=== PATIENT | female | born 1940 | race Caucasian/White ===

== ENCOUNTER 2021-02-16 08:07 | Inpatient (IN) | payer OTHER ==
[~2021-02-16] VITALS: Ht 167.6 cm; Wt 108.0 kg
[2021-02-16 08:17] VITALS: BP 170/91
[2021-02-16] MEDS ORDERED: HYDROCHLOROTHIA25 M1 PO (08:25)
[2021-02-16] MEDS ORDERED: SYNTHROID112 MC1 PO (08:25)
[2021-02-16] MEDS ORDERED: VOLTAREN ARTHRI20 GM (08:37)
[2021-02-16 08:46] LABS: INFLUENZA A ANTIGEN Negative (Negative); INFLUENZA B ANTIGEN Negative (Negative)
[2021-02-16 09:02] LABS: ABSOLUTE LYMPHOCYTES 1.7 thou/uL (0.8-5.3); ABSOLUTE MONOCYTES 0.3 thou/uL (0.0-1.2); ABSOLUTE NEUTROPHILS 1.7 thou/uL (1.6-8.1); BASOPHILS 0.4 %; EOSINOPHILS 0.5 %; HEMATOCRIT 44.6 % (37.0-47.0); HEMOGLOBIN 15.4 gm/dL (12.0-15.0); LYMPHOCYTES 44.8 %; MCHC 34.6 g/dL (28.0-37.0); MCV 95.4 fL (80.0-100.0); MONOCYTES 8.4 %; MPV 8.1 fl. (7.2-11.1); NUCLEATED RBCS 0 /100WBC; PLATELET COUNT* 162 thou/uL (150-400); POLYS 45.9 %; RBC 4.67 mil/uL (4.20-5.00); RDW-CV 12.5 % (10.5-14.5); WBC 3.7 thou/uL (4.0-11.0)
[2021-02-16 09:06] LABS: CALCIUM 8.7 mg/dL (8.5-10.1); POTASSIUM 3.2 mmol/L (3.5-5.1)
[2021-02-16 09:17] LABS: ALBUMIN 3.4 g/dL (3.4-5.0); MAGNESIUM 1.8 mg/dL (1.8-2.4); TOTAL BILIRUBIN 0.7 mg/dL (<0.1-1.0); TOTAL PROTEIN 7.9 g/dL (6.4-8.2)
[2021-02-16 10:19] LABS: URINE BILIRUBIN NEGATIVE (Negative); URINE BLOOD NEGATIVE (Negative); URINE CLARITY CLEAR; URINE COLOR YELLOW; URINE GLUCOSE-RANDOM NEGATIVE (Negative); URINE KETONES NEGATIVE (Negative); URINE LEUKOCYTES-REFLEX NEGATIVE (Negative); URINE NITRITE-REFLEX NEGATIVE (Negative); URINE PROTEIN NEGATIVE (Negative); URINE SPECIFIC GRAVITY <= 1.005 (1.005-1.030); URINE UROBILINOGEN 0.2 E.U./dl (0.2-1.0)
[2021-02-16] MEDS ORDERED: IVERMECTIN3 MG PO (11:39)
[2021-02-16] MEDS ORDERED: AZITHROMYCIN250 MG PO (11:40)
[2021-02-16 17:00] VITALS: BP 165/94
[2021-02-16 19:00] LABS: CALCIUM 7.6 mg/dL (8.5-10.1); POTASSIUM 3.9 mmol/L (3.5-5.1)
[2021-02-16 19:03] LABS: MAGNESIUM 2.2 mg/dL (1.8-2.4); PHOSPHORUS* 2.2 mg/dL (2.5-4.9)
[2021-02-16 20:47] VITALS: BP 156/76
[2021-02-16 21:10] VITALS: BP 168/75
[2021-02-17 00:50] VITALS: BP 174/76
[2021-02-17 05:27] VITALS: BP 1151/61
[2021-02-17 06:21] LABS: CHOLESTEROL 116 mg/dL (<200); HDL CHOLESTEROL 43 mg/dL (>40); LDL CHOLESTEROL 63 mg/dL (<100); TC:HDL 2.7 Ratio (Not establshd); TRIGLYCERIDE 54 mg/dL (<150); VLDL 11 mg/dL (<40)
[2021-02-17 06:25] LABS: SERUM ASSESSMENT Clear
--- NOTE | 2021-02-17 09:28 | EKG ---
[place] [address] ELECTROCARDIOGRAM REPORT Name: AMIEBRI Bere Room: [address] IN [facility]#: [id number] Admission: 02/16/21 Attend Phys: Maris Oreilly Discharge: Date of : 36 Date of Service: 02/16/21805 Report #: [id number] THIS REPORT FOR: //name// [facility] ED Test Date: 2021-02-16 Test Time: 08:06:29 Pat Name: CHARAN HOLLOWAY Department: Patient ID: [id number]- Room: Gender: F Block Cuber: : 1940 Requested By: Emerson Gayle Order Number: [id number] MD: Francisco Chin Measurements Intervals [place] Rate: 154 P: 153 NJ: 92 QRS: 33 QRSD: 92 T: -54 QT: 296 QTc: 474 Interpretive Statements Atrial flutter Repolarization abnormality, prob rate related No previous ECG available for comparison Electronically Signed On 02-17-2021 9:27:44 GRAPHIC TECHNICIAN by Francisco Chin [email or web address] <ELECTRONICALLY SIGNED> By: Elizabeth Chin MD, [facility] 02/17/21 0927 5 08 Elizabeth Chin MD, [facility]IR[facility] /EPI
[2021-02-17 13:12] LABS: ABSOLUTE LYMPHOCYTES 2.3 thou/uL (0.8-5.3); ABSOLUTE MONOCYTES 0.4 thou/uL (0.0-1.2); ABSOLUTE NEUTROPHILS 6.2 thou/uL (1.6-8.1); BASOPHILS 0.4 %; HEMATOCRIT 42.8 % (37.0-47.0); HEMOGLOBIN 15.3 gm/dL (12.0-15.0); LYMPHOCYTES 26.2 %; MCH 33.6 pg (26.0-34.0); MCHC 35.9 g/dL (28.0-37.0); MCV 93.6 fL (80.0-100.0); MONOCYTES 4.4 %; MPV 7.8 fl. (7.2-11.1); NUCLEATED RBCS 0 /100WBC; PLATELET COUNT* 170 thou/uL (150-400); RBC 4.57 mil/uL (4.20-5.00); RDW-CV 12.8 % (10.5-14.5); WBC 8.9 thou/uL (4.0-11.0)
[2021-02-17 13:25] LABS: CALCIUM 8.7 mg/dL (8.5-10.1); POTASSIUM 3.8 mmol/L (3.5-5.1)
[2021-02-17 13:57] LABS: DIRECT BILIRUBIN 0.1 mg/dL (<0.1-0.3); MAGNESIUM 2.2 mg/dL (1.8-2.4); TOTAL BILIRUBIN 0.5 mg/dL (<0.1-1.0); TOTAL PROTEIN 6.7 g/dL (6.4-8.2)
[2021-02-17 17:00] VITALS: BP 124/84
[2021-02-17 19:45] VITALS: BP 198/91
[2021-02-17 23:59] VITALS: BP 138/68
[2021-02-18 04:46] VITALS: BP 116/58
[2021-02-18 08:00] VITALS: BP 149/81
--- NOTE | 2021-02-18 08:15 | CON ---
[address] [address] CONSULTATION Name: BRI HOLLOWAY Room: [address] IN M.R.#: [id number] Admission: 02/16/21 Attend Phys: Pallavi Alicea Discharge: Date of : 36 Report #: [id number] THIS REPORT FOR: cc: Chad Guzmán MD, Anthony MD Biggs, F. Douglas MD [facility] ~ DATE OF CONSULTATION: 02/17/2021 CARDIOLOGY FOLLOWUP NOTE HISTORY OF PRESENT ILLNESS: Today she feels better. She does not have any specific complaint other than just not feeling well. She has converted to normal sinus rhythm. She was in atrial flutter with 2:1 block. She denies significant shortness of breath today. PHYSICAL EXAMINATION: VITAL SIGNS: Her temperature is 36.6, pulse is 67 and regular, her respirations are 20 and regular, blood pressure is 151/61. NECK: There is no jugular venous distention or hepatojugular reflux. Thyroid is not enlarged. HEART: Revealed normal first and second heart sound. There is soft S4. There is no S3. There are no murmurs, rubs, thrills, heaves or gallops. PMI is not displaced. ABDOMEN: Soft, flat, nontender, no palpable masses, no organomegaly. EXTREMITIES: Reveal no cyanosis, clubbing or edema. IMPRESSION: 1. Atrial flutter with 2:1 block, now in normal sinus rhythm. 2. Essential hypertension. 3. COVID-19 infection. RECOMMENDATIONS: I get her off of the IV amiodarone and switch her to p.o. and check her EKGs. Overall she looks fairly well today. <ELECTRONICALLY SIGNED> By: Elizabeth Chin MD, FACC 02/18/21 0815 0814 [id number]. Francisco Chin MD, FACC /nt
--- NOTE | 2021-02-18 10:36 | EKG ---
[place] [address] ELECTROCARDIOGRAM REPORT Name: BRI HOLLOWAY Room: [address] ADM IN M.R.#: [id number] Admission: 02/16/21 Attend Phys: Maris Oreilly Discharge: Date of : 36 Date of Service: 02/17/21 1358 Report #: [id number] THIS REPORT FOR: //name// [facility] Test Date: 2021-02-17 Test Time: 13:58:19 Pat Name: BRI HOLLOWAY Department: Room: [facility] Gender: F Application Development Team Lead: MADDY : 1940 Requested By: Anselmo Maki Order Number: [id number] Jada MD: Francisco Chin Measurements Intervals [place] Rate: 93 P: 21 NM: 149 QRS: 50 QRSD: 88 T: 26 QT: 387 QTc: 482 Interpretive Statements Sinus rhythm Borderline prolonged QT interval Baseline wander in lead(s) V3,V6 No previous ECG available for comparison Electronically Signed On 02-18-2021 10:36:36 WATER SAFETY INSTRUCTOR by Francisco Chin [email or web address] <ELECTRONICALLY SIGNED> By: Elizabeth Chin MD, FAC 02/18/21 1036 1358 1358 Elizabeth Chin MD, [facility] /EPI
[2021-02-18] MEDS ORDERED: PACERONE 200 M200 M1 PO (11:25)
[2021-02-18] MEDS ORDERED: ELIQUIS5 MG PO (11:25)
[2021-02-18] MEDS ORDERED: LISINOPRIL20 MG PO (11:25)
[2021-02-18 12:00] VITALS: BP 141/80
[2021-02-18 16:00] VITALS: BP 152/80
[2021-02-18 22:00] VITALS: BP 160/78
[2021-02-19 00:17] VITALS: BP 167/95
[2021-02-19 04:00] VITALS: BP 154/76
[2021-02-19 08:25] VITALS: BP 166/74
--- NOTE | 2021-02-19 10:24 | EKG ---
[place] [address] ELECTROCARDIOGRAM REPORT Name: BRI HOLLOWAY Room: [address] ADM IN M.R.#: [id number] Admission: 02/16/21 Attend Phys: Maris Oreilly Discharge: Date of : 36 Date of Service: 02/18/21 0434 Report #: [id number] THIS REPORT FOR: //name// [facility] Test Date: 2021-02-18 Test Time: 04:34:31 Pat Name: BRI HOLLOWAY Department: Room: [address] Gender: F Sales Associate: PAOLO : 1940 Requested By: Elizabeth Chin Order Number: [id number] Reading MD: Vasyl Contreras Measurements Intervals [place] Rate: 70 P: 37 HI: 143 QRS: 35 QRSD: 93 T: 36 QT: 455 QTc: 491 Interpretive Statements Sinus rhythm Atrial premature complex Borderline prolonged QT interval Compared to ECG 02/17/2021 13:58:19 Atrial premature complex(es) now present Electronically Signed On 02-19-2021 10:24:19 ADMINISTRATION PROFESSIONAL by Vasyl Contreras [email or web address] <ELECTRONICALLY SIGNED> By: Vasyl Contreras MD, FACC 02/19/21 1024 0434 0434 Vasyl Contreras MD, [facility] /EPI
[2021-02-19] MEDS ORDERED: LOPRESSOR50 MG PO (11:22)
--- NOTE | 2021-02-19 11:41 | CON ---
[address] [address] CONSULTATION Name: BRI HOLLOWAY Room: [address] IN M.R.#: [id number] Admission: 02/16/21 Attend Phys: Pallavi Alicea Discharge: Date of : 36 Report #: [id number] THIS REPORT FOR: cc: Chad Guzmán MD, Anthony MD Liston, Michael J. MD FACC ~ cc: Chad Guzmán MD DATE OF CONSULTATION: 02/16/2021 CARDIOLOGY CONSULT INDICATION: Atrial flutter with rapid ventricular response. HISTORY OF PRESENT ILLNESS: The patient is an 80-year-old white female admitted through the Emergency Room with complaints of profound fatigue. She is COVID-19 positive. Chest x-ray suggests early pneumonitis. Initial EKG showed a tachycardia that appeared to be supraventricular. Telemetry presently shows what appears to be atrial flutter with 2:1 conduction. She is not having any palpitations. She was unaware of her arrhythmia prior to coming to the hospital. She denies any prior cardiac history. The patient reports nausea and vomiting this morning and then passed out. She denied any trauma. She is not having any chest pain. She apparently completed a course of ivermectin last week. PAST MEDICAL HISTORY: 1. Hypertension. 2. Hypothyroidism. 3. Recent COVID-19 infection ongoing. SOCIAL HISTORY: The patient is a lifelong nonsmoker. She does not drink alcohol. REVIEW OF SYSTEMS: Positive for fatigue, palpitations, nausea, vomiting, or syncope. Otherwise, unremarkable. PHYSICAL EXAMINATION: VITAL SIGNS: Blood pressure 165/94, pulse 144. GENERAL: This is a pleasant elderly female, in no distress. Mood and affect appropriate. HEENT: Extraocular muscles intact. Mucous membranes are moist. NECK: Shows no jugular venous distention. No carotid bruits. CHEST: Reveals diminished breath sounds without wheezes or rales. CARDIAC: Reveals a tachycardia with regular rhythm [place] [address] CONSULTATION Name: BRI HOLLOWAY Bere Room: [address] IN [facility].#: [id number] Admission: 02/16/21 Attend Phys: Pallavi Alicea Discharge: Date of : 36 Report #: [id number] murmur. ABDOMEN: Reveals normal bowel sounds. The abdomen is soft, nontender. EXTREMITIES: Shows no edema. Peripheral pulses are 2+ and palpable. SKIN: Dry. DIAGNOSTIC DATA: A 12-lead EKG shows what appears to be atrial flutter with 2:[address] segment abnormalities noted. Chest x-ray shows mild infiltrates and basilar left and right lung. CTA of the chest shows no evidence of pulmonary embolus. LABORATORY DATA: Reviewed. Sodium 126, potassium 3.2, chloride 91, bicarbonate 26. BUN 12, creatinine 1.0, serum glucose 135. NT-proBNP is 673. High sensitivity troponin 15. White blood cell count 3.7, hemoglobin 15.4, platelet count 162,000. IMPRESSION AND RECOMMENDATIONS: 1. Atrial flutter with rapid ventricular response rate. We will start amiodarone drip with bolus in an effort to convert to sinus rhythm. We will give Eliquis 5 mg b.i.d. at least during initial hospitalization. The patient has voiced some concern about long-term anticoagulation. Echocardiogram ordered and pending. 2. Hypokalemia. The patient is getting a bolus of potassium. We will start electrolyte replacement protocol. 3. Hypertension. We will resume antihypertensive regimen with p.r.n. hydralazine. 4. COVID-19 pneumonia per pulmonology and hospitalist. 5. Coronary artery disease as evidenced by the findings of coronary calcification on CTA. We will require further workup once the patient recovers from COVID-19. A fasting lipid profile has been ordered and is pending. <ELECTRONICALLY SIGNED> By: Anselmo Maki MD, FACC 02/19/21 1141 1628 2031Micmayra Maki MD, FACC /nt
[2021-02-19 12:24] LABS: CALCIUM 8.4 mg/dL (8.5-10.1); CREATININE 0.9 mg/dL (0.6-1.3); MAGNESIUM 2.1 mg/dL (1.8-2.4); POTASSIUM 3.7 mmol/L (3.5-5.1)
[2021-02-19 14:26] VITALS: BP 166/74
--- NOTE | 2021-02-19 14:50 | 2DMMODE ---
[place] [address] 2 D/M-MODE ECHOCARDIOGRAM Name: CARTER HOLLOWAYDEVON Blackburn Room: [address] IN [place].#: [id number] Admission: 02/16/21 Attend Phys: Maris Oreilly Discharge: Date of : 36 Date of Service: 02/19/21 1449 Report #: [id number] THIS REPORT FOR: cc: Chad Guzmán MD, Anthony MD Blick,Vasyl Sharp MD [facility] ~ APPROVED REPORT Study performed: 02/19/2021 10:06:43 EXAM: Comprehensive 2D, Doppler, and color-flow Echocardiogram Patient Location: In-Patient Room #: [facility] Status: routine BSA: 2.15 HR: 132 bpm BP: 166/74 mmHg Rhythm: Atrial Fibrillation Other Information Study Quality: Good Indications Atrial Fibrillation 2D Dimensions IVSd: 13.56 (7-11mm) LVOT Diam: 20.36 (18-24mm) LVDd: 38.52 mm PWd: 9.42 (7-11mm) Ascending Ao: 28.97 (22-36mm) LVDs: 20.93 (25-40mm) Aortic Root: 29.31 mm Volumes Left Atrial Volume (Systole) LA ESV Index: 22.80 mL/m2 Aortic Valve AoV Peak Juvencio.: 1.49 m/s AO Peak Gr.: 8.89 mmHg LVOT Max P.12 mmHg AO Mean Gr.: 5.45 mmHg LVOT Mean P.21 mmHg LVOT Max V: 1.01 m/s AO V2 VTI: 22.77 cm LVOT Mean V: 0.69 m/s ROSALVA (VTI): 2.61 cm2 LVOT V1 VTI: 18.23 [place] [address] 2 D/M-MODE ECHOCARDIOGRAM Name: BRI HOLLOWAY Room: [address] IN [facility]#: [id number] Admission: 02/16/21 Attend Phys: Maris Oreilly Discharge: Date of : 36 Date of Service: 02/19/21 1449 Report #: [id number] TDI Medial E' Juvencio.: 0.17 m/s Lateral E' Juvencio.: 0.18 m/s Pulmonary Valve PV Peak Juvencio.: 1.13 m/s PV Peak Gr.: 5.09 mmHg Tricuspid Valve RAP Estimate: 5.00 mmHg TR Peak Gr.: 24.26 mmHg RVSP: 29.00 mmHg PA Pressure: 29.00 mmHg Left Ventricle The left ventricle is normal size. There is normal LV segmental wall motion. There is normal left ventricular wall thickness. Left ventricular systolic function is normal. The left ventricular ejection fraction is within the normal range. LVEF is 60-65%. This study is not technically sufficient to allow evaluation of the LV diastolic function due to atrial fibrillation. Right Ventricle The right ventricle is normal size. The right ventricular systolic function is normal. Atria The left atrium size is normal. The right atrium size is normal. Aortic Valve Mild aortic valve sclerosis. No aortic regurgitation is present. There is no aortic valvular stenosis. Mitral Valve The mitral valve is normal in structure. Mild mitral regurgitation. No evidence of mitral valve stenosis. Tricuspid Valve The tricuspid valve is normal in structure. Trace tricuspid regurgitation. No pulmonary hypertension. Pulmonic Valve The pulmonary valve is normal in structure. Mild pulmonic regurgitation. Great Vessels The aortic root is normal in size. IVC is normal [place] [address] 2 D/M-MODE ECHOCARDIOGRAM Name: CARTER HOLLOWAYEA Bere Room: [address]#: [id number] Admission: 02/16/21 Attend Phys: Maris Oreilly Discharge: Date of : 36 Date of Service: 02/19/21 1449 Report #: [id number] collapses >50% with inspiration. Pericardium There is no pericardial effusion. <Conclusion> Mild aortic valve sclerosis. LVEF is 60-65%. Mild mitral regurgitation. <ELECTRONICALLY SIGNED> By: Vasyl Contreras MD, FACC 02/19/21 1449 1449 1449 Vasyl Contreras MD, [facility] /INF
[2021-02-19 14:54] VITALS: BP 166/74
[2021-02-19 15:17] VITALS: BP 166/74
--- NOTE | 2021-02-20 07:59 | CON ---
[address] [address] CONSULTATION Name: BRI HOLLOWAY Room: [address] IN M.R.#: [id number] Admission: 02/16/21 Attend Phys: Pallavi Alicea Discharge: 02/19/21 Date of : 36 Report #: [id number] THIS REPORT FOR: cc: Chad Guzmán MD, Anthony MD Biggs,Elizabeth Singh MD [facility] ~ DATE OF CONSULTATION: 02/18/2021 CARDIOLOGY HOSPITAL FOLLOWUP VISIT HISTORY OF PRESENT ILLNESS: The patient feels well today. She denies any chest pain or shortness of breath. She remains in sinus rhythm. Her EKG is essentially unchanged from yesterday. PHYSICAL EXAMINATION: VITAL SIGNS: Temperature is 36.1, respirations 18, pulse 72, blood pressure 116/58. She is in normal sinus rhythm. NECK: There is no jugular venous distention. LUNGS: Clear. HEART: Reveals normal first and second heart sounds. There is soft S4. There is no S3. There are no murmurs, rubs, thrills, heaves or other gallops. ABDOMEN: Soft, flat and nontender. No palpable masses. No organomegaly. EXTREMITIES: Reveal no cyanosis, clubbing or edema. NEUROLOGIC: The patient mentated normally, talked normally, moved all extremities normally. She is hard of hearing, however. IMPRESSION: 1. COVID-19. 2. Essential hypertension. 3. History of atrial flutter, now in normal sinus rhythm. RECOMMENDATIONS: I would continue the amiodarone loading and continue current therapy. <ELECTRONICALLY SIGNED> By: Elizabeth Chin MD, FACC 02/20/21 0759 0811 [id number]. Francisco Chin MD, FACC /nt
== END 2021-02-19 14:55 | disposition home or self-care (01) | DRG 177 ==
LOC: M.ERS 08:07 → M.ORTHSURG 10:00 → M.TBA-ER 10:00 → M.ORTHSURG 19:47
PROVIDERS: Family Medicine; Internal Medicine; Internal Medicine Cardiovascular Disease; ADMIT Internal Medicine; ATTEND Internal Medicine
DX: U07.1 COVID-19 (principal); J15.9 Unspecified bacterial pneumonia; I47.1 Supraventricular tachycardia; E87.1 Hypo-osmolality and hyponatremia; I48.92 Unspecified atrial flutter; I42.9 Cardiomyopathy, unspecified; R65.10 Systemic inflammatory response syndrome (SIRS) of non-infectious origin without acute organ dysfunction; I10 Essential (primary) hypertension; E03.9 Hypothyroidism, unspecified; E87.6 Hypokalemia; I25.10 Atherosclerotic heart disease of native coronary artery without angina pectoris; I48.91 Unspecified atrial fibrillation; Z23 Encounter for immunization